=== PATIENT | male | born 1945 | race Hispanic/Latino ===

== ENCOUNTER → 2023-12-16 | Outpatient (CLI) | payer OTHER, MEDICARE ==
[~2023-12-16] VITALS: Ht 160 cm; Wt 54.7 kg
[~2023-12-16] MED LIST: ALEN70TA80 PO; ATOR40TA71 PO; CARV3.12 PO; LATANOPROST OU; NITR0.4T50 SL; OMEP40CA21 PO; RIVA20TA PO; SACU1TAB7 PO; TIMOLOL OU; TORS20TA4 PO; VERI2.5T PO
[2023-12-16 11:49] LABS: BASOPHILS # (AUTO) 0.03 K/uL (0.00-0.20); BASOPHILS % (AUTO) 0.6 % (0.0-5.0); EOSINOPHILS # (AUTO) 0.59 K/uL (0.00-0.70); EOSINOPHILS % (AUTO) 11.2 % (0.0-8.0); HEMATOCRIT 35.2 % (42-54); IMMATURE GRANULOCYTE ABSOLUTE 0.01 K/uL (0-1); LYMPHOCYTES # (AUTO) 1.3 K/uL (1.0-4.8); LYMPHOCYTES % (AUTO) 24.4 % (21.0-51.0); MEAN CORPUSCULAR HEMOGLOBIN 32.1 pg (27.0-33.0); MEAN CORPUSCULAR VOLUME 97.5 fL (79-99); MONOCYTES # (AUTO) 0.4 K/uL (0.1-1.0); MONOCYTES % (AUTO) 8.3 % (3.0-13.0); NEUTROPHILS # (AUTO) 2.9 K/uL (1.8-7.7); NEUTROPHILS % (AUTO) 55.3 % (40.0-77.0); PLATELET COUNT (AUTO) 158 K/uL (130-400); RED BLOOD CELL COUNT(AUTO) 3.61 MIL/uL (4.50-6.20); RED CELL DISTRIBUTION WIDTH 12.8 % (11.0-15.5); WHITE BLOOD COUNT (AUTO) 5.3 K/uL (4.8-10.8)
[2023-12-16 12:00] LABS: INR 1.2 (0.85-1.15); PROTHROMBIN TIME 12.8 SEC (9.6-11.6)
[2023-12-16 12:01] LABS: PARTIAL THROMBOPLASTIN TIME 33.9 SEC (26.3-35.5)
[2023-12-16 12:07] LABS: POTASSIUM 4.5 mmol/L (3.5-5.1)
[2023-12-16 12:12] VITALS: BP 100/54; PULSE 64; RESP 18
== END | disposition home or self-care (01) ==
LOC: DAH 10:00 → EDSTATUS 13:00
PROVIDERS: ATTEND Internal Medicine Cardiovascular Disease
DX: I45.10 Unspecified right bundle-branch block (principal); I48.91 Unspecified atrial fibrillation; I50.22 Chronic systolic (congestive) heart failure
CPT/HCPCS: 36415; 80048; 85025; 85610; 85730; 93005